=== PATIENT | female | born 1990 | race Caucasian/White ===

== ENCOUNTER 2024-03-14 13:33 | Emergency (ER) | payer SELFPAY ==
[~2024-03-14] VITALS: Ht 162.6 cm; Wt 54.0 kg
[2024-03-14 13:39] VITALS: O2SAT 98
[2024-03-14 13:53] VITALS: BP 124/72; PULSE 66; RESP 14; TEMP 35.8; O2SAT 100
[2024-03-14 16:40] LABS: BASOPHILS % 0.6 % (0.0-2.0); EOSINOPHILS % 1.5 % (0.0-5.0); HEMATOCRIT. 39.7 % (36.0-48.0); LYMPHOCYTES % 27.2 % (20.0-50.0); MEAN CORPUSCULAR HEMOGLOBIN 32.1 pg (28.0-32.0); MEAN CORPUSCULAR HGB CONC 35.2 g/dL (31.0-37.0); MEAN CORPUSCULAR VOLUME 91.1 fL (81.0-99.0); MEAN PLATELET VOLUME 9.9 fl (7.4-10.4); MONOCYTES % 8.6 % (2.0-8.0); NEUTROPHILS % 62.1 % (40.0-76.0); PLATELET 216 x1000/uL (130-400); RED BLOOD CELL COUNT 4.36 mill/uL (4.2-5.4)
[2024-03-14 16:43] LABS: CHLORIDE 106 mEq/L (98-107); POTASSIUM 3.9 mEq/L (3.5-5.1); SODIUM 139 mEq/L (136-145)
[2024-03-14 16:44] LABS: CALCIUM 9.7 mg/dL (8.7-10.4); CARBON DIOXIDE 26 mEq/L (21-32)
[2024-03-14 16:49] LABS: CREATININE 0.6 mg/dL (0.6-1.0); GLUCOSE 98 mg/dL (70-105); UREA NITROGEN BLOOD 6 mg/dL (9-23)
[2024-03-14 18:43] LABS: HCG SCREEN POSITIVE
== END 2024-03-14 23:36 | disposition home or self-care (01) ==
LOC: ER 13:33
DX: O46.91 Antepartum hemorrhage, unspecified, first trimester (principal); O02.1 Missed abortion; Z3A.11 11 weeks gestation of pregnancy
CPT/HCPCS: 36415; 76801; 80048; 84702; 84703; 85025; 99284